=== PATIENT | female | born 1995 | race Caucasian/White ===

== ENCOUNTER 2019-09-14 08:44 | Emergency (ER) | payer SELFPAY ==
[2019-09-14] MEDS ORDERED: IBUPROFEN 400 MG TAB ONE (09:19)
--- NOTE | 2019-09-14 10:26 | EDPHYS ---
Physician Documentation [facility] Name: Maile Rendon Age: 24 yrs Sex: Female : 1995 Arrival Date: 09/14/2019 Time: 08:48 Bed 18 Private MD: ED Physician Ajay Rojas HPI: 09/14 09:16 This 24 yrs old Female presents to ER via Ambulatory with complaints of Flu rn Symptoms. 09:16 The patient or guardian reports cough, flu symptoms, low-grade fever, myalgias. Onset: rn The symptoms/episode began/occurred 3 day(s) ago. Severity of symptoms: At their worst the symptoms were moderate, in the emergency department the symptoms are unchanged. Modifying factors: The symptoms are alleviated by nothing, the symptoms are aggravated by animal dander. Associated signs and symptoms: Pertinent positives: diarrhea, fever, rhinorrhea, sore throat. The patient has not experienced similar symptoms in the past. The patient has not recently seen a physician. Reports flu like symptoms, fever, cough, sore throat, diarrhea, vomiting, began 3 days ago, exposed to flu. Took amoxicillin and mucinex without alleviation of symptoms. . Historical: - Allergies: 09:15 No Known Allergies; em - Home Meds: 09:15 None [Active]; em - PMHx: 09:15 None; em - PSHx: 09:15 None; em - Immunization history:: Adult Immunizations not up to date, Flu vaccine is not up to date. - Social history:: Smoking status: Patient uses tobacco products, smokes one-half pack cigarettes per day. - Ebola Screening: : Patient negative for fever greater than or equal to 101.5 degrees Fahrenheit, and additional compatible Ebola Virus Disease symptoms Patient denies exposure to infectious person Patient denies travel to an Ebola-affected area in the 21 days before illness onset No symptoms or risks identified at this time. - Family history:: not pertinent. - Hospitalizations: : No recent hospitalization is reported. ROS: 09:16 Constitutional: + fever Eyes: Negative for injury, pain, redness, and discharge, ENT: + rn congestion and sore throat Respiratory: + cough Abdomen/GI: + nausea/vomiting/diarrhea MS/Extremity: Negative for injury and deformity, Skin: Negative for injury, rash, and discoloration, Neuro: Negative for weakness, numbness, tingling, and seizure. Exam: 09:16 Constitutional: This is a well developed, well nourished patient who is awake, alert, rn and in no acute distress. Head/Face: Normocephalic, atraumatic. ENT: MMM, mild pharyngeal erythema, no stridor, no exudate Neck: Trachea midline, no thyromegaly or masses palpated, and no cervical lymphadenopathy. Supple, full range of motion without nuchal rigidity, or vertebral point tenderness. No Meningismus. Cardiovascular: Tachycardic, regular, no murmur Respiratory: Lungs have equal breath sounds bilaterally, clear to auscultation. No increased work of breathing, no retractions or nasal flaring. Abdomen/GI: soft, non-tender MS/ Extremity: Pulses equal, no cyanosis. Neurovascular intact. Full, normal range of motion. Equal circumference. Neuro: Awake and alert, GCS 15, oriented to person, place, time, and situation. Vital Signs: 08:58 BP 132 / 85; Pulse 111; Resp 20; Temp 101.1(O); Pulse Ox 97% on R/A; Weight 79.38 kg; em Height 5 ft. 0 in. (152.40 cm); Pain 8/10; 10:23 Pulse 86; Resp 18; Temp 99.7(O); Pulse Ox 100% on R/A; Pain 6/10; em 08:58 Body Mass Index 34.18 (79.38 kg, 152.40 cm) em MDM: 08:58 Patient medically screened. rn 10:22 Differential Diagnosis: Influenza Upper Respiratory Infection Sinusitis Pharyngitis rn Viral Syndrome. Data reviewed: vital signs, nurses notes, lab test result(s), and as a result, I will discharge patient. Counseling: I had a detailed discussion with the patient and/or guardian regarding: the historical points, exam findings, and any diagnostic results supporting the discharge/admit diagnosis, lab results, the need for outpatient follow up, to return to the emergency department if symptoms worsen or persist or if there are any questions or concerns that arise at home. Response to treatment: the patient's symptoms have mildly improved after treatment, and as a result, I will discharge patient. Special discussion: I discussed with the patient/guardian in detail that at this point there is no indication for admission to the hospital. It is understood, however, that if the symptoms persist or worsen the patient needs to return immediately for re-evaluation. ED course: Most consistent with viral syndrome, flu and strep negative, sounded most like flu B. Symptoms present for more than 48 hours anyway so outside of treatment window, possibly false negative or other viral/flu-like syndrome. Return precautions given and understood.. 09/14 09:05 Order name: Flu; Complete Time: 10: rn 09/14 09:05 Order name: Strep; Complete Time: 10: rn 09/14 10:21 Order name: Throat Culture EDMS Administered Medications: : Drug: Motrin 800 mg Route: PO; em 10:22 Follow up: Response: No adverse reaction em Disposition: 09/14/19 10:25 Discharged to Home. Impression: Viral Syndrome. - Condition is Stable. - Discharge Instructions: Upper Respiratory Infection, Adult, Viral Respiratory Infection. - Work release form, Medication Reconciliation Form, Thank You Letter, Antibiotic Education, Prescription Opioid Use form. - Follow up: Private Physician; When: As needed; Reason: Recheck today's complaints, Re-evaluation by your physician. - Problem is new. - Symptoms have improved. Signatures: Dispatcher [employer] EDAZ Blake Baron, [employer] Ajay Bonilla MD MD wire harness design engineer: (The following items were deleted from the chart) 10:39 10:25 09/14/2019 10:25 Discharged to Home. Impression: Viral Syndrome. Condition is em Stable. Forms are Medication Reconciliation Form, Thank You Letter, Antibiotic Education, Prescription Opioid Use. Follow up: Private Physician; When: As needed; Reason: Recheck today's complaints, Re-evaluation by your physician. Problem is new. Symptoms have improved. rn
--- NOTE | 2019-09-14 10:26 | ER ---
Nurse's Notes [facility] Name: Maile Rendon Age: 24 yrs Sex: Female : 1995 Arrival Date: 09/14/2019 Time: 08:48 Bed 18 Private MD: Diagnosis: Viral Syndrome Presentation: 09/14 09:13 Presenting complaint: Patient states: fatigue, HINES, V/D and sore throat since last em night, also reports fever. Transition of care: patient was not received from another setting of care. Onset of symptoms was September 13, 2019. Risk Assessment: Do you want to hurt yourself or someone else? Patient reports no desire to harm self or others. Initial Sepsis Screen: Does the patient meet any 2 criteria? Temp <36.0*C (96.8*F)) or > 38.3*C (100.9*F). HR > 90 bpm. Does the patient have a suspected source of infection? Yes: Productive cough/pneumonia. Care prior to arrival: None. 09:13 Method Of Arrival: Ambulatory em 09:20 Acuity: TONY 4 ss Historical: - Allergies: 09:15 No Known Allergies; em - Home Meds: 09:15 None [Active]; em - PMHx: 09:15 None; em - PSHx: 09:15 None; em - Immunization history:: Adult Immunizations not up to date, Flu vaccine is not up to date. - Social history:: Smoking status: Patient uses tobacco products, smokes one-half pack cigarettes per day. - Ebola Screening: : Patient negative for fever greater than or equal to 101.5 degrees Fahrenheit, and additional compatible Ebola Virus Disease symptoms Patient denies exposure to infectious person Patient denies travel to an Ebola-affected area in the 21 days before illness onset No symptoms or risks identified at this time. - Family history:: not pertinent. - Hospitalizations: : No recent hospitalization is reported. Screenin:21 Abuse screen: Denies threats or abuse. Nutritional screening: No deficits noted. em Tuberculosis screening: No symptoms or risk factors identified. Fall Risk None identified. Assessment: 09:07 General: Appears in no apparent distress. uncomfortable, ill, Behavior is calm, em cooperative, Reports fever for 12-24 hours. Pain: Complains of pain in throat and head Pain currently is 6 out of 10 on a pain scale. Neuro: Level of Consciousness is awake, alert, obeys commands, Oriented to person, place, time, situation, Appropriate for age. Cardiovascular: Capillary refill < 3 seconds Patient's skin is warm and dry. Respiratory: Airway is patent Respiratory effort is even, unlabored, Respiratory pattern is regular, symmetrical, Breath sounds are clear bilaterally. GI: Reports diarrhea, nausea, vomiting, since yesterday. : Denies burning with urination. EENT: Nares are clear Oral mucosa is moist. Throat is reddened has enlarged tonsils bilaterally Reports nasal congestion since yesterday. Derm: Skin is intact, is healthy with good turgor, Skin is pink, warm \T\ dry. Musculoskeletal: Capillary refill < 3 seconds, Range of motion: intact in all extremities. 09:15 General: The previous assessment is accurate, call light remains within reach. ss 10:38 Reassessment: Patient appears in no apparent distress at this time. Patient and/or em family updated on plan of care and expected duration. Pain level reassessed. Patient is alert, oriented x 3, equal unlabored respirations, skin warm/dry/pink. rates pain 4/10 Patient states symptoms have improved. Vital Signs: 08:58 BP 132 / 85; Pulse 111; Resp 20; Temp 101.1(O); Pulse Ox 97% on R/A; Weight 79.38 kg; em Height 5 ft. 0 in. (152.40 cm); Pain 8/10; 10:23 Pulse 86; Resp 18; Temp 99.7(O); Pulse Ox 100% on R/A; Pain 6/10; em 08:58 Body Mass Index 34.18 (79.38 kg, 152.40 cm) em ED Course: 08:48 Patient arrived in ED. as 08:58 Ajay Rojas MD is Attending Physician. rn 08:58 Arm band placed on. em 09:06 Blake Baron LVN is Primary Nurse. em 09:21 Patient has correct armband on for positive identification. Bed in low position. Call em light in reach. Adult w/ patient. Pulse ox on. NIBP on. 09:21 Flu and/or RSV swab sent to lab. Strep swab sent to lab. em 09:45 Triage completed. ss 10:37 No provider procedures requiring assistance completed. Patient did not have IV access em during this emergency room visit. Administered Medications: 09:21 Drug: Motrin 800 mg Route: PO; em 10:22 Follow up: Response: No adverse reaction em Outcome: 10:25 Discharge ordered by . rn 10:37 Discharged to home ambulatory, with family. em 10:37 Condition: good 10:37 Discharge instructions given to patient, family, Instructed on discharge instructions, follow up and referral plans. Demonstrated understanding of instructions, follow-up care. 10:39 Patient left the ED. em Signatures: Blake Baron, PREMIUM SERVICE REPRESENTATIVE PREMIUM SERVICE REPRESENTATIVE em Leny Green Roman, MD MD rn Peter, Gus em1 Savannah Holloway RN RN ss Corrections: (The following items were deleted from the chart) 09:16 08:58 BP 132 / 85; Pulse 111bpm; Resp 20bpm; Pulse Ox 97% RA; Temp 101.1F Oral; Pain em 8; em1
[2019-09-14 13:24] VITALS: BP 132/85
[2019-09-14 13:25] VITALS: TEMP 99.7; O2SAT 100
== END 2019-09-14 10:39 | disposition home or self-care (01) ==
LOC: ER 08:44
DX: B34.9 Viral infection, unspecified (principal); F17.210 Nicotine dependence, cigarettes, uncomplicated
CPT/HCPCS: 87070; 87081; 87804; 99283

== ENCOUNTER 2020-04-28 18:48 | Emergency (ER) | payer SELFPAY ==
[2020-04-28] MEDS ORDERED: LIDOCAINE 1% 20 ML MDV ONE (19:23)
--- NOTE | 2020-04-28 19:56 | RAD REPORT ---
EXAM DESCRIPTION: RAD - Ankle Left 3 View -04/28/2020 7:43 pm CLINICAL HISTORY: Left ankle pain status post injury FINDINGS: No fracture or dislocation is seen. A radiopaque foreign body is not seen
--- NOTE | 2020-04-28 19:56 | RAD REPORT ---
EXAM DESCRIPTION: RAD - Foot Left 3 View - 04/28/2020 7:43 pm CLINICAL HISTORY: Left Foot pain FINDINGS: No fracture or dislocation is seen. A radiopaque foreign body is not seen
[2020-04-28] MEDS ORDERED: ACETAMINOPHEN 500 MG TAB ONE (20:10)
[2020-04-28] MEDS ORDERED: TETANUS & DIPHTHERIA TOX,ADULT 0.5 ML VIAL ONE (20:10)
--- NOTE | 2020-04-28 21:05 | EDPHYS ---
Physician Documentation [facility] Name: Maile Rendon Age: 24 yrs Sex: Female : 1995 Arrival Date: 04/28/2020 Time: 18:57 Bed 27 Private MD: ED Physician Adarsh Myles HPI: 04/28 19:17 This 24 yrs old Female presents to ER via EMS with complaints of Left Foot mh7 Injury. 19:17 The patient presents with an injury, a laceration, 4.5 cm(s), irregular, Also 1.5 cm mh7 laceration. The complaints affect the anterior aspect of left ankle and dorsum of left foot. Context: The problem was sustained at home, resulted from a heavy object falling, Glass jar, Mechanism of Injury: Glass jar fell out of hand and broke on left foot the patient can partially bear weight, the patient is able to ambulate, with mild difficulty. Onset: The symptoms/episode began/occurred just prior to arrival, today. Modifying factors: The symptoms are alleviated by nothing, the symptoms are aggravated by nothing. Associated signs and symptoms: Pertinent negatives: calf tenderness, fever, nausea, numbness, rash, swelling, tingling, vomiting, warmth, weakness. Severity of symptoms: At their worst the symptoms were moderate, just prior to arrival, in the emergency department the symptoms are unchanged. [employer]SI[employer] OPERATIONS: 19:06 LMP N/A - Irregular menses vc Historical: - Allergies: 19:04 No Known Allergies; vc - Home Meds: 19:03 Zoloft 50 mg Oral tab 1 tab once daily for Anxiety with Depression [Active]; vc - PMHx: 19:03 Herpes; Depression; Ovarian cyst; vc - PSHx: 19:03 None; vc - Immunization history:: Adult Immunizations up to date. - Social history:: Smoking status: Patient reports the use of cigarette tobacco products, smokes one-half pack cigarettes per day. ROS: 19:17 Constitutional: Negative for fever, chills, and weight loss, Eyes: Negative for injury, mh7 pain, redness, and discharge, ENT: Negative for injury, pain, and discharge, Neck: Negative for injury, pain, and swelling, Cardiovascular: Negative for chest pain, palpitations, and edema, Respiratory: Negative for shortness of breath, cough, wheezing, and pleuritic chest pain, Abdomen/GI: Negative for abdominal pain, nausea, vomiting, diarrhea, and constipation, Back: Negative for injury and pain, : Negative for injury, bleeding, discharge, and swelling, Neuro: Negative for headache, weakness, numbness, tingling, and seizure, Psych: Negative for depression, anxiety, suicide ideation, homicidal ideation, and hallucinations, Allergy/Immunology: Negative for hives, rash, and allergies, Endocrine: Negative for neck swelling, polydipsia, polyuria, polyphagia, and marked weight changes, Hematologic/Lymphatic: Negative for swollen nodes, abnormal bleeding, and unusual bruising. Exam: 19:17 Constitutional: This is a well developed, well nourished patient who is awake, alert, mh7 and in no acute distress. Head/Face: Normocephalic, atraumatic. Neck: Trachea midline, no thyromegaly or masses palpated, and no cervical lymphadenopathy. Supple, full range of motion without nuchal rigidity, or vertebral point tenderness. No Meningismus. Chest/axilla: Normal chest wall appearance and motion. Nontender with no deformity. No lesions are appreciated. Cardiovascular: Regular rate and rhythm with a normal S1 and S2. No gallops, murmurs, or rubs. Normal PMI, no JVD. No pulse deficits. Respiratory: Lungs have equal breath sounds bilaterally, clear to auscultation and percussion. No rales, rhonchi or wheezes noted. No increased work of breathing, no retractions or nasal flaring. Abdomen/GI: Soft, non-tender, with normal bowel sounds. No distension or tympany. No guarding or rebound. No evidence of tenderness throughout. Back: No spinal tenderness. No costovertebral tenderness. Full range of motion. 19:17 Neuro: Awake and alert, GCS 15, oriented to person, place, time, and situation. Cranial nerves II-XII grossly intact. Motor strength 5/5 in all extremities. Sensory grossly intact. Cerebellar exam normal. Normal gait. Psych: Awake, alert, with orientation to person, place and time. Behavior, mood, and affect are within normal limits. 19:17 Musculoskeletal/extremity: Extremities: noted in the anterior aspect of left ankle: laceration, noted in the dorsum of left foot: laceration. 19:17 Musculoskeletal/extremity: ROM: intact in all extremities, Circulation is intact in all extremities. Pulses: are normal with no appreciated deficits, Perfusion: the patient is normally perfused throughout, Perfusion: the extremity is normally perfused throughout, Calf tenderness, is absent, Edema, is not appreciated, Sensation intact. Compartment Syndrome exam of affected extremity: is normal. no numbness, no tingling, no sensation deficit, no palor, no weak pulses, Joints: All joints are normal except Weight bearing: Tendon exam: specific tendon testing normal through active and passive range of motion 21:06 Musculoskeletal/extremity: Extremities: 7 21:06 Skin: injury, laceration(s), the wound is approximately 8 cm(s), with a depth of 0.5 cm(s), of the anterior aspect of left ankle, the second wound is approximately 2 cm(s), with a depth of 0.25 cm(s), of the dorsum of left foot, that can be described as irregular. Vital Signs: 18:57 BP 117 / 72; Pulse 81; Resp 18; Temp 98.8; Pulse Ox 100% on R/A; Weight 79.38 kg; vc Height 5 ft. (152.40 cm); Pain 6/10; 20:00 BP 91 / 72; Pulse 76; Resp 20; Pulse Ox 100% on R/A; vc 18:57 Body Mass Index 34.18 (79.38 kg, 152.40 cm) vc Laceration: 20:48 Wound Repair of 8cm ( 3.1in ) subcutaneous laceration to dorsum of left foot. pm1 Irregularly shaped.. Distal neuro/vascular/tendon intact. Anesthesia: Local anesthetic administered with 12 mls of 1% lidocaine. Wound prep: Extensive cleansing with hibiclenz by nurse, Wound irrigation with saline by nurse, Wound explored extensively, Copious irrigation. Skin closed with 12 4-0 Prolene using simple sutures and sterile technique. Subcutaneous tissue closed with 2 4-0 fast absorbing gut using simple sutures and sterile technique. Dressed with 4x4's. Patient tolerated well. MDM: 19:16 Patient medically screened. [facility] 21:02 Differential diagnosis: fracture, foreign body, penetrating trauma, Laceration. Data [facility] reviewed: vital signs, nurses notes, EMS record, radiologic studies. Data interpreted: Pulse oximetry: on room air is 100 %. Interpretation: normal. Counseling: I had a detailed discussion with the patient and/or guardian regarding: the historical points, exam findings, and any diagnostic results supporting the discharge/admit diagnosis, radiology results, the need for outpatient follow up, to return to the emergency department if symptoms worsen or persist or if there are any questions or concerns that arise at home. Response to treatment: the patient's symptoms have resolved after treatment, the patient's blood pressure is in an acceptable range, mental status has returned to baseline, the patient no longer shows bradycardia, the patient is not short of breath, the patient is not tachycardic, the patient's pain is gone, the patient's temperature has normalized. 04/28 19:15 Order name: Foot Left 3 View XRAY; Complete Time: 19:58 [facility] 04/28 19:15 Order name: Ankle Left 3 View XRAY; Complete Time: 19:58 [facility] Administered Medications: 20:00 Drug: Tetanus-Diphtheria Toxoid Adult 0.5 ml {Nut Steamer: [employer]. Exp: vc 11/29/2020. Lot #: [id number]. } Route: IM; Site: right deltoid; 20:00 Drug: Tylenol 1000 mg Route: PO; vc 20:18 Drug: Lidocaine (1 %) 10 ml Volume: 20 ml; Route: Infiltration; vc Disposition: 21:08 Co-signature as Attending Physician, Adarsh Myles MD. [facility] Disposition: 04/28/20 21:05 Discharged to Home. Impression: Laceration Left Foot/Ankle. - Condition is Stable. - Discharge Instructions: Laceration Care, Adult, [id number], Sutured Wound Care, [id number]. - Medication Reconciliation Form, Thank You Letter, Antibiotic Education, Prescription Opioid Use form. - Follow up: Private Physician; When: 48 Hours; Reason: Worsening of condition, Recheck today's complaints, Continuance of care, Re-evaluation by your physician. Follow up: Emergency Department; When: 48 Hours; Reason: Wound Recheck, Worsening of condition. - Problem is new. - Symptoms have improved. Signatures: Dispatcher [employer] EDMS Ino Abbasi, [employer]ET[employer] pm1 Maylin Chou RN RN vc Holmes, Maurice, MD MD [facility] Corrections: (The following items were deleted from the chart) 21:08 19:17 Skin: injury, laceration(s), the wound is approximately 4.5 cm(s), with a depth mh7 of 0.5 cm(s), of the anterior aspect of left ankle, the second wound is approximately 1.5 cm(s), with a depth of 0.25 cm(s), of the dorsum of left foot, that can be described as mh7 21:32 21:05 04/28/2020 21:05 Discharged to Home. Impression: Laceration Left Foot/Ankle. vc Condition is Stable. Forms are Medication Reconciliation Form, Thank You Letter, Antibiotic Education, Prescription Opioid Use. Follow up: Private Physician; When: 48 Hours; Reason: Worsening of condition, Recheck today's complaints, Continuance of care, Re-evaluation by your physician. Follow up: Emergency Department; When: 48 Hours; Reason: Wound Recheck, Worsening of condition. Problem is new. Symptoms have improved. mh7
--- NOTE | 2020-04-28 21:05 | ER ---
Nurse's Notes [facility] Name: Maile Rendon Age: 24 yrs Sex: Female : 1995 Arrival Date: 04/28/2020 Time: 18:57 Bed 27 Private MD: Diagnosis: Laceration Left Foot/Ankle Presentation: 04/28 18:57 Chief complaint: EMS states: "She was cooking spaghetti when she dropped the glass pot vc on left foot and it shattered. Coronavirus screen: Proceed with normal triage. Patient denies a cough. Patient denies shortness of breath or difficulty breathing. Patient denies measured and/or subjective temperature greater than 100.4F prior to today's visit. Patient denies travel on a cruise ship or to a country the [facility] currently lists as an affected area. Patient denies contact with known and/or suspected case of COVID-19. Ebola Screen: No symptoms or risks identified at this time. Initial Sepsis Screen: Does the patient meet any 2 criteria? No. Patient's initial sepsis screen is negative. Does the patient have a suspected source of infection? No. Patient's initial sepsis screen is negative. Risk Assessment: Do you want to hurt yourself or someone else? Patient reports no desire to harm self or others. Onset of symptoms was April 28, 2020 at 18:10. 18:57 Method Of Arrival: EMS: [facility] 18:57 Acuity: TONY 3 vc Triage Assessment: 19:04 General: Appears in no apparent distress. Behavior is calm, cooperative, appropriate vc for age. Pain: Complains of pain in dorsum of left foot and anterior aspect of left ankle Pain does not radiate. Pain currently is 6 out of 10 on a pain scale. Quality of pain is described as burning, sharp, Pain began suddenly, 1 hour ago. Is intermittent, episodic, Alleviated by rest. 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 - Social history:: Smoking status: Patient reports the use of cigarette tobacco products, smokes one-half pack cigarettes per day. Screenin:04 Abuse screen: Denies threats or abuse. Nutritional screening: No deficits noted. vc Tuberculosis screening: No symptoms or risk factors identified. Fall Risk None identified. Assessment: 19:15 General: Appears in no apparent distress. uncomfortable, Behavior is calm, cooperative, vc appropriate for age. Pain: Complains of pain in anterior aspect of left ankle and dorsum of left foot Pain does not radiate. Pain currently is 6 out of 10 on a pain scale. Quality of pain is described as sharp, Alleviated by rest. Neuro: Level of Consciousness is awake, alert, obeys commands, Oriented to person, place, time, situation, Appropriate for age. Cardiovascular: Capillary refill < 3 seconds Patient's skin is warm and dry. Respiratory: Airway is patent Respiratory effort is even, unlabored, Respiratory pattern is regular, symmetrical. GI: No signs and/or symptoms were reported involving the gastrointestinal system. : No signs and/or symptoms were reported regarding the genitourinary system. Derm: Skin temperature is warm Wound noted anterior aspect of left ankle and dorsum of left foot. 20:15 Reassessment: Patient appears in no apparent distress at this time. Patient and/or vc family updated on plan of care and expected duration. Pain level reassessed. Patient is alert, oriented x 3, equal unlabored respirations, skin warm/dry/pink. Vital Signs: 18:57 BP 117 / 72; Pulse 81; Resp 18; Temp 98.8; Pulse Ox 100% on R/A; Weight 79.38 kg; vc Height 5 ft. (152.40 cm); Pain 6/10; 20:00 BP 91 / 72; Pulse 76; Resp 20; Pulse Ox 100% on R/A; vc 18:57 Body Mass Index 34.18 (79.38 kg, 152.40 cm) ED Course: 18:57 Patient arrived in ED. 19:01 Triage completed. 19:04 Adarsh Myles MD is Attending Physician. [facility] 19:05 Arm band placed on. vc 19:06 Patient has correct armband on for positive identification. Bed in low position. Call light in reach. Pulse ox on. NIBP on. 19:21 Calcote, Maylin, RN is Primary Nurse. vc 19:43 Foot Left 3 View XRAY In Process Unspecified. EDMS 19:43 Ankle Left 3 View XRAY In Process Unspecified. EDMS 20:18 Assist provider with laceration repair on anterior aspect of left ankle and dorsum of vc left foot using sutures. Set up tray. Performed by Ino Abbasi SHIPPING TRACK SUPERVISOR Dressed with non stick gauze, and epi wrap. 21:31 Patient did not have IV access during this emergency room visit. Crutch training done. vc Epi wrap to left ankle. Administered Medications: 20:00 Drug: Tetanus-Diphtheria Toxoid Adult 0.5 ml {Vp Information Technology: [employer]. Exp: vc 11/29/2020. Lot #: [id number]. } Route: IM; Site: right deltoid; 20:00 Drug: Tylenol 1000 mg Route: PO; vc 20:18 Drug: Lidocaine (1 %) 10 ml Volume: 20 ml; Route: Infiltration; vc Outcome: 21:05 Discharge ordered by MD. child 21:32 Discharged to home via wheelchair. vc 21:32 Condition: good 21:32 Discharge instructions given to patient, Instructed on discharge instructions, follow up and referral plans. crutch walking, wound care, Demonstrated understanding of instructions, follow-up care, wound care, crutch walking. 21:32 Patient left the ED. vc Signatures: Dispatcher [employer] Maylin Harris RN RN vc Adarsh Myles MD MD 7
[2020-04-28 21:51] VITALS: TEMP 98.8; O2SAT 100
[2020-04-28 21:53] VITALS: BP 91/72
== END 2020-04-28 21:32 | disposition home or self-care (01) ==
LOC: ER 18:48
PROC: 0JQR0ZZ Repair Left Foot Subcutaneous Tissue and Fascia, Open Approach (ICD-10-PCS; principal; 2020-04-28)
DX: S91.312A Laceration without foreign body, left foot, initial encounter (principal); W25.XXXA Contact with sharp glass, initial encounter; Y93.89 Activity, other specified; Y92.009 Unspecified place in unspecified non-institutional (private) residence as the place of occurrence of the external cause; Z23 Encounter for immunization; F34.1 Dysthymic disorder; F17.210 Nicotine dependence, cigarettes, uncomplicated
CPT/HCPCS: 90471; 90714; 99284